=== PATIENT | female | born 1995 | race Caucasian/White ===

== ENCOUNTER 2017-03-09 22:34 | Emergency (ER) | payer OTHER ==
[~2017-03-09] VITALS: Ht 157.5 cm; Wt 90.6 kg
[2017-03-09 23:20] LABS: HEMATOCRIT 43.2 % (34.6-47.8); HEMOGLOBIN 14.9 g/dL (11.7-16.4); WHITE BLOOD COUNT 11.9 x10^3/uL (3.4-10)
[2017-03-09 23:31] LABS: BLOOD UREA NITROGEN 11 mg/dL (7-18)
[2017-03-09 23:58] LABS: PATH.CAST-FLAG NOT PRESENT; SPERM-FLAG NOT PRESENT; SRC-FLAG NOT PRESENT; XTAL-FLAG NOT PRESENT; YLC-FLAG NOT PRESENT
[2017-03-10 01:27] VITALS: BP 131/82
== END 2017-03-10 01:30 | disposition home or self-care (01) ==
LOC: ED 23:59
DX: O26.892 Other specified pregnancy related conditions, second trimester (principal); Z3A.01 Less than 8 weeks gestation of pregnancy; N93.8 Other specified abnormal uterine and vaginal bleeding
CPT/HCPCS: 36415; 76801; 80048; 81001; 82040; 84702; 85025; 86901; 87086; 99285